=== PATIENT | male | born 1990 | race Caucasian/White ===

== ENCOUNTER 2024-09-09 22:09 | Emergency (ER) | payer MEDICAID, OTHER ==
[~2024-09-09] VITALS: Ht 172.7 cm; Wt 63.0 kg
[2024-09-09 22:18] VITALS: TEMP 36.9; O2SAT 99
[2024-09-09] MEDS: KETOROLAC 15MG/ML VIAL IM ONE (22:45)
[2024-09-09] MEDS: IBUPROFEN 600MG TABLET PO ONE (23:43)
[2024-09-09] MEDS ORDERED: LIDO-53 TP (23:55)
[2024-09-09] MEDS ORDERED: NAPR-1176 MT (23:55)
[2024-09-10 00:38] VITALS: BP 113/80; PULSE 78; RESP 16; O2SAT 100
== END 2024-09-10 00:40 | disposition home or self-care (01) ==
LOC: ER 22:09
DX: M25.521 Pain in right elbow (principal); Z79.899 Other long term (current) drug therapy; Z79.1 Long term (current) use of non-steroidal anti-inflammatories (NSAID)
CPT/HCPCS: 73080; 99283; J1885; Z7610